=== PATIENT | female | born 1980 | race Two or more races ===

== ENCOUNTER 2016-08-07 00:08 | Emergency (ER) | payer BC ==
[~2016-08-07] VITALS: Ht 152.4 cm; Wt 49.9 kg
[2016-08-07] MEDS ORDERED: NKM (00:19)
[2016-08-07] MEDS ORDERED: HYDROmorphone 1mg/ml Carpuject IVP ONE (00:45)
[2016-08-07 00:57] LABS: APPEARANCE,URINE CLEAR; BASOPHILS % (AUTO) 0.9 % (0.0-2.0); EOSINOPHILS % (AUTO) 1.8 % (0.0-3.0); KETONES,URINE 1+ (NEGATIVE); LEUKOCYTE ESTERASE ,URINE 1+ (NEGATIVE); LYMPHOCYTES % (AUTO) 27.2 % (20.0-45.0); MEAN CORPUSCULAR HEMOGLOBIN 28.1 PG (27.0-31.0); MEAN CORPUSCULAR HGB CONC 32.5 G/DL (32.0-36.0); MEAN CORPUSCULAR VOLUME 87 FL (80-99); MONOCYTES % (AUTO) 6.5 % (1.0-10.0); NEUTROPHILS % (AUTO) 63.6 % (45.0-75.0); NITRITE,URINE NEGATIVE (NEGATIVE); PH,URINE 6 (4.5-8.0); PLATELET COUNT 372 K/UL (150-450); PROTEIN,URINE 2+ (NEGATIVE); RED BLOOD COUNT 4.69 M/UL (4.20-5.40); RED CELL DISTRIBUTION WIDTH 13.5 % (11.6-14.8); UROBILINOGEN,URINE 1 MG/DL (0.0-1.0); WHITE BLOOD COUNT 11.4 K/UL (4.8-10.8)
[2016-08-07 01:05] VITALS: BP 98/51
[2016-08-07 01:06] LABS: SQUAMOUS EPITHELIAL CELL,UR MANY /LPF (NONE/OCC)
[2016-08-07 01:07] LABS: BACTERIA,URINE MANY /HPF
[2016-08-07 01:11] LABS: ALANINE AMINOTRANSFERASE 8 U/L (3-33); ALBUMIN/GLOBULIN RATIO 2.2 (1.0-2.7); ANION GAP 13 (5-15); ASPARTATE AMINO TRANSFERASE 10 U/L (5-40); CALCIUM 9.9 mg/dL (8.6-10.2); CARBON DIOXIDE 27 mEQ/L (20-30); CHLORIDE 98 mEQ/L (98-107); CREATININE 0.8 mg/dL (0.5-0.9); GLOMERULAR FILTRATION RATE > 60 mL/min (>60); HEMOLYSIS 3; LIPASE 48 U/L (< 60); POTASSIUM 4.2 mEQ/L (3.4-4.9); SODIUM 138 mEQ/L (135-145); TOTAL PROTEIN 6.4 g/dL (6.6-8.7)
--- NOTE | 2016-08-07 02:50 | Emergency Room Report ---
History of Present Illness General Chief Complaint: Abdominal Pain Source: Patient Present Illness HPI Is a 36-year-old female with history of NF. She also has a history of appendectomy which was 15. She presents with chief complaint of right lower caught in pain. Pain is severe 10 out of 10. Onset tonight. Worse with movement. Denies any fever chills denies any nausea vomiting. No diarrhea. She had a history similar to this when she had a ruptured ovarian cyst. Allergies: Coded Allergies: CIPROFLOXACIN (Verified Allergy, Mild, Rash, 08/07/16) Patient History Past Medical History: see triage record, old chart reviewed Past Surgical History: appy Pertinent Family History: none Social History: Denies: smoking Last Menstrual Period: A WEEK AGO Now: No : 1 Immunizations: other Reviewed Nursing Documentation: PMH: Agreed, PSxH: Agreed Review of Systems Eye: Denies: blurred vision, eye pain ENT: Denies: ear pain, nose congestion, throat swelling Respiratory: Denies: cough, shortness of breath Cardiovascular: Denies: chest pain, palpitations Gastrointestinal: Reports: abdominal pain, Denies: diarrhea, nausea, vomiting Musculoskeletal: Denies: back pain, joint pain Skin: Denies: rash Neurological: Denies: headache, numbness Endocrine: Denies: increased thirst, increased urine Hematologic/Lymphatic: Denies: easy bruising All Other Systems: negative except mentioned in HPI Physical Exam Vital Signs Date Time Temp Pulse Resp B/P Pulse Ox O2 Delivery O2 Flow Rate FiO2 08/07/16 00:13 97.7 86 18 104/68 98 Room Air vitals normal Sp02 EP Interpretation: reviewed, normal General Appearance: well appearing, no apparent distress, alert Head: normocephalic, atraumatic Eyes: bilateral eye EOMI, bilateral eye PERRL ENT: hearing grossly normal, normal pharynx Neck: full range of motion, supple, no meningismus Respiratory: chest non-tender, lungs clear, normal breath sounds Cardiovascular #1: regular rate, rhythm, no murmur Gastrointestinal: normal bowel sounds, no mass, no organomegaly, no bruit, non- distended, tenderness - Right lower quadrant Musculoskeletal: back normal, gait/station normal, normal range of motion Neurologic: alert, oriented x3 Psychiatric: mood/affect normal Skin: warm/dry Medical Decision Making Diagnostic Impression: Primary Impression: Abdominal pain in female Additional Impressions: Fibroid Qualified Codes: D25.9 - Leiomyoma of uterus, unspecified UTI (urinary tract infection) Qualified Codes: N30.00 - Acute cystitis without hematuria ER Course She presents with acute onset of pelvic/abdominal pain. Most likely a ruptured ovarian cyst. Her fibroid may be causing urine tract infection from obstruction. Pain is well-controlled now. We'll discharge home. No evidence of acute abdomen. No evidence of torsion. Laboratory Tests Test 08/07/16 00:45 08/07/16 01:00 White Blood Count 11.4 K/UL (4.8-10.8) H Red Blood Count 4.69 M/UL (4.20-5.40) Hemoglobin 13.2 G/DL (12.0-16.0) Hematocrit 40.6 % (37.0-47.0) Mean Corpuscular Volume 87 FL (80-99) Mean Corpuscular Hemoglobin 28.1 PG (27.0-31.0) Mean Corpuscular Hemoglobin Concent 32.5 G/DL (32.0-36.0) Red Cell Distribution Width 13.5 % (11.6-14.8) Platelet Count 372 K/UL (150-450) Mean Platelet Volume 6.0 FL (6.5-10.1) L Neutrophils (%) (Auto) 63.6 % (45.0-75.0) Lymphocytes (%) (Auto) 27.2 % (20.0-45.0) Monocytes (%) (Auto) 6.5 % (1.0-10.0) Eosinophils (%) (Auto) 1.8 % (0.0-3.0) Basophils (%) (Auto) 0.9 % (0.0-2.0) Urine Color Yellow Urine Appearance Clear Urine pH 6 (4.5-8.0) Urine Specific [place] 1.020 (1.005-1.035) Urine Protein 2+ (NEGATIVE) H Urine Glucose (UA) Negative (NEGATIVE) Urine Ketones 1+ (NEGATIVE) H Urine Occult Blood 1+ (NEGATIVE) H Urine Nitrite Negative (NEGATIVE) Urine Bilirubin Negative (NEGATIVE) Urine Urobilinogen 1 MG/DL (0.0-1.0) H Urine Leukocyte Esterase 1+ (NEGATIVE) H Urine RBC 2-4 /HPF (0 - 2) H Urine WBC 5-10 /HPF (0 - 2) H Urine Squamous Epithelial Cells Many /LPF (NONE/OCC) H Urine Bacteria Many /HPF (NONE) H Urine HCG, Qualitative Negative Sodium Level 138 mEQ/L (135-145) Potassium Level 4.2 mEQ/L (3.4-4.9) Chloride Level 98 mEQ/L (98-107) Carbon Dioxide Level 27 mEQ/L (20-30) Anion Gap 13 (5-15) Blood Urea Nitrogen 16 mg/dL (7-23) Creatinine 0.8 mg/dL (0.5-0.9) Estimat Glomerular Filtration Rate > 60 mL/min (>60) Glucose Level 87 mg/dL (74-106) Calcium Level 9.9 mg/dL (8.6-10.2) Total Bilirubin < 0.2 mg/dL (0.0-1.2) Aspartate Amino Transf (AST/SGOT) 10 U/L (5-40) Alanine Aminotransferase (ALT/SGPT) 8 U/L (3-33) Alkaline Phosphatase 32 U/L (35-104) L Total Protein 6.4 g/dL (6.6-8.7) L Albumin 4.4 g/dL (3.5-5.2) Globulin 2.0 g/dL Albumin/Globulin Ratio 2.2 (1.0-2.7) Lipase 48 U/L (< 60) Urine Opiates Screen Positive (NEGATIVE) H Urine Barbiturates Screen Negative (NEGATIVE) Phencyclidine (PCP) Screen Negative (NEGATIVE) Urine Amphetamines Screen Positive (NEGATIVE) H Urine Benzodiazepines Screen Positive (NEGATIVE) H Urine Cocaine Screen Negative (NEGATIVE) Urine Marijuana (THC) Screen Positive (NEGATIVE) H Activated Partial Thromboplast Time 25 SEC (23-33) Lab Results Impression labs unremarkable CT/MRI/US Diagnostic Results CT/MRI/US Diagnostic Results : Imaging Test Ordered: CT abdomen and pelvis Impression Read by radiologist. Urine mass 4.4 cm Last Vital Signs Date Time Temp Pulse Resp B/P Pulse Ox O2 Delivery O2 Flow Rate FiO2 08/07/16 01:25 97.7 08/07/16 01:05 74 16 98/51 96 Room Air Status: improved Disposition: HOME, SELF-CARE Condition: Stable Scripts Cephalexin* (KEFLEX*) 500 Mg Capsule 500 MG ORAL TID, #21 CAP 0 Refills Prov: TELLY JUDD M.D. 08/07/16 Hydrocodone/Acetaminophen 5-325* (HYDROCODONE/ACETAMINOPHEN 5-325*) 1 Each Tablet 1 TAB ORAL Q6H Y for For Pain, #15 TAB 0 Refills Prov: TELLY JUDD M.D. 08/07/16 Referrals: NON PHYSICIAN (PCP) Patient Instructions: Abdominal Pain, Adult Additional Instructions: Followup with your Dr. in 2-3 days. Return if symptom worsen. TELLY JUDD M.D. Aug 07, 2016 02:50
[2016-08-07] MEDS ORDERED: KEFLEX500 MG ORAL (03:24)
[2016-08-07] MEDS ORDERED: HYDROCODON-ACE1 EA15 ORAL (03:24)
[2016-08-07 03:26] VITALS: BP 102/52
[2016-08-07] MEDS ORDERED: Ketorolac 30mg Inj IV ONE (03:30)
[2016-08-07 03:55] VITALS: BP 102/52
--- NOTE | 2016-08-07 10:57 | Diagnostic Imaging Report ---
Clinical Indication: Right lower quadrant abdominal pain Technique: No oral contrast utilized, per emergency room physician request IV administration nonionic contrast. Venous phase spiral acquisition obtained through the abdomen and pelvis. Multiplanar reconstructions were generated. Total dose length product 732 mGycm. CTDIvol(s) 13 mGy Comparison: None Findings: The uterus is markedly abnormal, with a lesion which enhances but is hypoattenuating compared to normal myometrium filling the endometrial cavity. This measures 4.1 x 4.2 x 4.3 cm. Uterus is retroverted. There is a small amount of free cul-de-sac fluid. What may be a normal appendix is demonstrated. In any case, no evidence of acute appendicitis. There is mild retained fecal debris proximally. No evidence of diverticulosis or diverticulitis. No small bowel distention. No free intraperitoneal air. The liver demonstrates multiple subcentimeter low-attenuation lesions which are too small to characterize. It also demonstrates a focal area of fatty deposition adjacent to the ligamentum teres in the usual location. The gallbladder, bile ducts, pancreas, spleen, adrenals are unremarkable. The kidneys demonstrate bilateral cysts, as well as bilateral subcentimeter low-attenuation lesions which are too small to. The right kidney demonstrates a punctate calculus in the lower pole. No hydronephrosis or hydroureter. No retroperitoneal or mesenteric mass or adenopathy. No adnexal mass. The included lung bases demonstrate posterior dependent atelectatic changes. The heart is borderline enlarged. The bones are unremarkable. Areas of skin thickening are seen in the bilateral flank soft tissues. Impression: 4.3 cm mass filling the endometrial cavity, most likely a submucosal fibroid. No acute abnormality Trace free pelvic cul-de-sac fluid, most likely physiologic Subcentimeter low-attenuation liver lesions, too small to characterize. Most likely benign simple cysts or bile hamartomas. Subcentimeter low-attenuation renal lesions, too small to characterize, most likely benign simple cysts. No further followup necessary Nonobstructive right lower pole renal calculus Borderline cardiomegaly Bilateral renal cysts Focal fatty deposition in the liver Areas of skin thickening bilaterally. Correlate with clinical findings This agrees with the preliminary interpretation provided overnight by [facility] teleradiology service. The CT scanner at [facility] is accredited by the [employer] and the scans are performed using protocols designed to limit radiation exposure to as low as reasonably achievable to attain images of sufficient resolution adequate for diagnostic evaluation.
== END 2016-08-07 03:56 | disposition home or self-care (01) ==
LOC: EMR 00:37
DX: D25.9 Leiomyoma of uterus, unspecified (principal); N30.00 Acute cystitis without hematuria; Z90.89 Acquired absence of other organs; Z88.8 Allergy status to other drugs, medicaments and biological substances
CPT/HCPCS: 36415; 74177; 80053; 80300; 81003; 81025; 83690; 85025; 85730; 87086; 96360; 96374; 96375; 99284; J1170; J1885; J2405; Q9967